=== PATIENT | female | born 1995 | race African-American/Black ===

== ENCOUNTER 2024-10-31 10:10 | Outpatient (CLI) | payer OTHER ==
[2024-10-31] MEDS ORDERED: Iopamidol 370 76% 100 ML VIAL ONE (11:23)
== END 2024-10-31 10:11 | disposition home or self-care (01) ==
LOC: CT 10:10
PROVIDERS: ATTEND Nurse Practitioner Family
DX: R31.29 Other microscopic hematuria (principal); K76.89 Other specified diseases of liver
CPT/HCPCS: 74178; Q9967

== ENCOUNTER 2025-02-07 07:37 | Emergency (ER) | payer OTHER ==
[2025-02-07 08:30] LABS: #Basophils 0.05 10x3/uL (0.0-0.2); #Eosinophils 0.05 10x3/uL (0.0-0.7); #Monocytes 0.77 10x3/uL (0.11-0.59); #Neutrophils 5.33 10x3/uL (1.40-6.50); %Basophils 0.6 % (0.0-1.0); %Eosinophils 0.6 % (0.0-10.0); %Lymphocytes 23.6 % (21.0-51.0); %Monocytes 9.5 % (0.0-10.0); %Neutrophils 65.5 % (42.0-75.0); Hematocrit 43.0 % (36.0-47.0); Hemoglobin 14.0 g/dL (12.0-16.0); Mean Corpuscular Hemoglobin 29.0 pg (27.0-31.0); Mean Corpuscular Volume 89.0 fL (78.0-98.0); Platelet Count 251 10x3/uL (130-400); Red Blood Cell (RBC) Count 4.83 mill/uL (4.20-5.40); White Blood Cell (WBC) Count 8.14 10x3/uL (4.8-10.8)
[2025-02-07 08:39] LABS: BHCG - Serum Negative (NEGATIVE); Pregs Control Background? CLEAR/WHITE (CLR/WHITE); Pregs Control Bar Appear? YES (CONTROL BAR)
[2025-02-07 08:48] LABS: ALT (SGPT) 8 U/L (Less than 34); AST (SGOT) 19 U/L (11-34); Albumin 4.0 g/dL (3.1-4.5); Alkaline Phosphatase 71 U/L (40-110); Anion Gap 11 mmol/L (10-20); BUN (Urea Nitrogen) 7 mg/dL (7.0-18.7); Bilirubin, Total 0.6 mg/dL (0.3-1.2); Calc. Creatinine Clearance 0 mL/min (70-130); Calcium 9.1 mg/dL (7.8-10.44); Carbon Dioxide 25 mmol/L (22-29); Chloride 106 mmol/L (98-107); Globulin 3.1 g/dL (2.4-3.5); Glucose 88 mg/dL (70-105); Lipase 22 U/L (8-78); Potassium 4.2 mmol/L (3.5-5.1); Sodium 138 mmol/L (136-145)
[2025-02-07 09:25] LABS: Bacteria/HPF None Seen HPF (None Seen); CAUTI Indications for Culture Acute Hematuria; Glucose, Urine (Dipstick) Normal (Negative); Leukocyte Negative Leu/uL (Negative); Protein, Urine (Dipstick) 20 mg/dL (Neg-Trace); Specific Gravity, Urine 1.029 (1.002-1.036); WBC/HPF 0-3 HPF (0-3)
[2025-02-07 09:26] LABS: Urine Culture Reflex No No
[2025-02-07] MEDS ORDERED: Ketorolac Tromethamine 30 MG (1 mL) VIAL ONE (09:54)
[2025-02-07] MEDS ORDERED: Iopamidol-370 76% 500 ML MDV (1 ML CHARGE) ONE (13:54)
== END 2025-02-07 10:02 | disposition home or self-care (01) ==
LOC: ERS 07:37
DX: K59.00 Constipation, unspecified (principal); M54.50 Low back pain, unspecified; R07.9 Chest pain, unspecified
CPT/HCPCS: 36415; 71045; 71275; 74177; 80053; 81001; 83690; 84484; 84703; 85025; 93005; 96374; J1885; Q9967